=== PATIENT | female | born 1945 | race Two or more races ===

== ENCOUNTER 2017-12-20 12:48 | Emergency (ER) | payer OTHER, BC ==
--- NOTE | 2017-12-20 13:54 | EDPHY ---
H & P Stated Complaint: LLQ pain; Numbness L ant leg; +constipation Time Seen by Provider: 12/20/17 13:44 HPI/ROS: CHIEF COMPLAINT: Left lower quadrant pain HISTORY OF PRESENT ILLNESS: 72-year-old female with diverticulosis presents with lower abdominal pain. Onset of left lower quadrant pain yesterday. The pain is constant and worsens with sitting position. She also has pain in her left buttock that radiates down her left leg. Unclear if the pain is related to the left lower quadrant abdominal pain. No nausea, vomiting, fever, diarrhea numbness or weakness. REVIEW OF SYSTEMS: complete 10 point ROS reviewed and is negative except for the noted elements in the HPI - Personal History Current Tetanus Diphtheria and Acellular Pertussis (TDAP): Yes - Medical/Surgical History Other PMH: uterine CA - Social History Smoking Status: Current every day smoker Alcohol Use: Sober Drug Use: None Additional Social History: [place] - Physical Exam Exam: General Appearance: Alert, pleasant Eyes: Pupils equal and round, no conjunctival pallor or injection ENT, Mouth: Mucous membranes moist Neck: Normal inspection Respiratory: Lungs are clear to auscultation Cardiovascular: Regular rate and rhythm Gastrointestinal: Abdomen is soft, left lower quadrant tenderness Back: Left buttock tenderness Neurological: A&O, nonfocal, normal gait Skin: Warm and dry, no rash Extremities: Nontender, no pedal edema, negative straight leg raise Psychiatric: Mood and affect normal Constitutional: Initial Vital Signs Temperature (C) 36.6 C 12/20/17 12:55 Heart Rate 65 12/20/17 12:55 Respiratory Rate 16 12/20/17 12:55 Blood Pressure 108/65 12/20/17 12:55 O2 Sat (%) 94 12/20/17 12:55 O2 Delivery Mode Room Air Allergies/Adverse Reactions: fentanyl Allergy (Severe, Verified 12/20/17 13:00) throat swells up midazolam [From Versed] Allergy (Verified 12/20/17 13:00) Home Medications: Medication Instructions Recorded Cephalexin [Keflex (*)] 500 mg PO BID #10 cap 12/20/17 Hydrocodone/APAP 5/325 [Arden 1 - 2 tab PO Q4H PRN #10 tab 12/20/17 5/325] Simvastatin [Zocor] 20 mg PO 12/20/17 Medical Decision Making - Diagnostics Imaging Results: CT abd/pelvis read by the radiologist: rt pelvic mass causing obstructive uropathy, appears subacute/chronic, no diverticulitis Imaging: Discussed imaging studies w/ call specialist Radiologist, I viewed and interpreted images myself ED Course/Re-evaluation: This pt presents with LLQ pain with radicular sx. CT reveals no evidence of diverticulitis or other left sided intraabd process causing sx. Query sx secondary to sciatica, cece with left radicular sx and CT scan showing L5/S1 disc bulge. CT results d/w pt, including rt pelvic mass, concerning for CA, possibly with lung mets. No indication for admission/abx, will rx with pain medications for now. Pt traveling home this afternoon, CD of CT scan given, will f/u with PCP and reservations clerk for further evaluation. 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 Medications Given: Discontinued Medications Oxycodone/Acetaminophen (Percocet 5/325) 1 tab PO EDNOW ONE Stop: 12/20/17 15:12 Last Admin: 12/20/17 15:13 Dose: 1 tab Departure - Departure Disposition: Home, Routine, Self-Care Clinical Impression: Pelvic mass in female Urinary tract infection Qualifiers: Urinary tract infection type: acute cystitis Hematuria presence: without hematuria Qualified Code(s): N30.00 - Acute cystitis without hematuria Sciatica Qualifiers: Laterality: left Qualified Code(s): M54.32 - Sciatica, left side Condition: Good Instructions: Urinary Tract Infection in Women (ED), Sciatica (ED) Additional Instructions: Your CT scan reveals a mass on the right side of your pelvis, approximately 5 x 5 cm in diameter. You will need further evaluation, including a biopsy of this mass. I suggest that you followup with your primary care physician or upkeep worker for further evaluation. You also have a urinary tract infection. I have prescribed Keflex for the UTI. Take ibuprofen every 6 hr as needed for pain. Return for worsening symptoms or any concerns. Referrals: EDUAR LAWRENCE [Other] - As per Instructions Prescriptions: Cephalexin [Keflex (*)] 500 mg PO BID #10 cap Hydrocodone/APAP 5/325 [Arden 5/325] 1 - 2 tab PO Q4H PRN #10 tab PRN Reason: Pain, Moderate
[2017-12-20 14:20] LABS: PLATELET COUNT 193 10^3/uL (150-400)
[2017-12-20] MEDS ORDERED: OXYCODONE/APAP 5/325 TAB PO ONE (15:11)
[2017-12-20 15:16] VITALS: BP 124/99
== END 2017-12-20 15:21 | disposition home or self-care (01) ==
DX: R19.03 Right lower quadrant abdominal swelling, mass and lump (principal); N30.00 Acute cystitis without hematuria; M54.32 Sciatica, left side; F17.200 Nicotine dependence, unspecified, uncomplicated; Z85.42 Personal history of malignant neoplasm of other parts of uterus